=== PATIENT | female | born 1965 | race Caucasian/White ===

== ENCOUNTER 2018-04-17 14:34 | Inpatient (IN) | payer OTHER ==
[~2018-04-17] VITALS: Ht 154.9 cm; Wt 63.5 kg
[2018-04-17 15:30] VITALS: BP 113/70
[2018-04-17] MEDS ORDERED: DOCUSATE SODIUM 283 MG/5 ML MINI-ENEMA PR PRN (15:45)
[2018-04-17] MEDS ORDERED: IBUPROFEN 600 MG TABLET PO PRN (16:45)
[2018-04-17] MEDS ORDERED: *NON-FORMULARY MED [ENTER DRUG, DOSE, FREQ IN COMMENTS] CLINICAL ONE (17:15)
[2018-04-17] MEDS ORDERED: PNEUMOCOCCAL VACCINE POLYVALENT 0.5 ML VIAL [PPSV23] IM ONE (18:30)
[2018-04-17 20:00] VITALS: BP 121/84
[2018-04-17] MEDS: OxyCODONE HCL 5 MG IR TABLET PO PRN (20:03)
[2018-04-17] MEDS: DOCUSATE SODIUM 100 MG CAPSULE PO SCH (20:17)
[2018-04-17] MEDS: SENNA 187 MG TABLET PO SCH (20:17)
[2018-04-18 01:08] VITALS: BP 105/59
[2018-04-18] MEDS: OxyCODONE HCL 5 MG IR TABLET PO PRN ×4 (01:08→20:52)
[2018-04-18 05:34] LABS: BASOPHILS % (AUTO) 0.5 % (0.0-2.0); EOSINOPHILS % (AUTO) 6.2 % (1.0-6.0); HEMATOCRIT 32.9 % (36-46); HEMOGLOBIN 10.7 g/dL (12.0-16.0); LYMPHOCYTES # (AUTO) 1.2 K/uL (1.0-4.8); LYMPHOCYTES % (AUTO) 25.7 % (22.0-44.0); MEAN CORPUSCULAR HEMOGLOBIN 25.5 pg (26.0-34.0); MEAN CORPUSCULAR HGB CONC 32.5 G/dL (31.0-37.0); MEAN CORPUSCULAR VOLUME 79 fL (80-100); MONOCYTES # (AUTO) 0.3 K/uL (0.1-1.0); MONOCYTES % (AUTO) 6.5 % (2.0-9.0); NEUTROPHILS # (AUTO) 2.9 K/uL (1.8-7.7); NEUTROPHILS % (AUTO) 61.1 % (40.0-70.0); PLATELET COUNT (AUTO) 201 K/uL (150-450); RED BLOOD CELL COUNT(AUTO) 4.19 MIL/uL (4.00-5.20); RED CELL DISTRIBUTION WIDTH 17.8 % (11.5-14.5)
[2018-04-18 05:56] LABS: ALANINE AMINOTRANSFERASE 128 U/L (12-78); ALBUMIN 2.5 g/dL (3.4-5.0); ALKALINE PHOSPHATASE 69 U/L (46-116); ANION GAP 6 mmol/L (8-16); ASPARTATE AMINOTRANSFERASE 85 U/L (15-37); BILIRUBIN,TOTAL 0.3 mg/dL (0.1-1.0); CALCIUM, TOTAL 8.5 mg/dL (8.8-10.5); CARBON DIOXIDE 28 mmol/L (22-29); CHLORIDE 104 mmol/L (98-107); CREATININE 0.75 mg/dL (0.60-1.30); GLOMERULAR FILTR. RATE CALC > 60 mL/min (>60); GLUCOSE,RANDOM 103 mg/dL (70-110); POTASSIUM 3.6 mmol/L (3.5-5.1); SODIUM SERUM 138 mmol/L (136-145); TOTAL PROTEIN, SERUM 5.5 g/dL (6.4-8.2); UREA NITROGEN, BLOOD 12 mg/dL (7-18)
[2018-04-18] MEDS ORDERED: OMEPRAZOLE 20 MG CAPSULE PO SCH (07:00)
[2018-04-18 07:47] VITALS: BP 120/76
[2018-04-18] MEDS: AmLODIPine BESYLATE 2.5 MG TABLET PO SCH (08:47)
[2018-04-18] MEDS: HYDROCHLOROTHIAZIDE 25 MG TABLET PO SCH (08:47)
[2018-04-18] MEDS: ASPIRIN 81 MG CHEWABLE TABLET PO SCH (08:47)
[2018-04-18] MEDS: LOSARTAN POTASSIUM 50 MG TABLET PO SCH (08:47)
[2018-04-18] MEDS: DOCUSATE SODIUM 100 MG CAPSULE PO SCH ×2 (08:48→20:51)
[2018-04-18] MEDS: ETHINYL ESTRADIOL PO SCH (09:00)
[2018-04-18] MEDS: NORGESTREL PO SCH (09:00)
[2018-04-18] MEDS: ENOXAPARIN SODIUM 30 MG/0.3 ML PF SYRINGE SQ SCH ×2 (12:47→20:51)
[2018-04-18] MEDS: ONDANSETRON HCL 4 MG TABLET PO PRN (15:22)
[2018-04-18 16:05] VITALS: BP 131/78
[2018-04-18] MEDS: OMEPRAZOLE 20 MG CAPSULE PO SCH (16:21)
[2018-04-18] MEDS: SUMAtriptan SUCCINATE 25 MG TABLET PO PRN (19:15)
[2018-04-18] MEDS: SENNA 187 MG TABLET PO SCH (20:51)
[2018-04-19] VITALS: BP 123/68
[2018-04-19] MEDS: OxyCODONE HCL 5 MG IR TABLET PO PRN ×4 (01:06→22:34)
[2018-04-19] MEDS: OMEPRAZOLE 20 MG CAPSULE PO SCH ×2 (06:07→17:13)
[2018-04-19 08:06] LABS: ALANINE AMINOTRANSFERASE 155 U/L (12-78); ALBUMIN 2.8 g/dL (3.4-5.0); ALKALINE PHOSPHATASE 76 U/L (46-116); ANION GAP 7 mmol/L (8-16); ASPARTATE AMINOTRANSFERASE 97 U/L (15-37); BILIRUBIN,TOTAL 0.4 mg/dL (0.1-1.0); CARBON DIOXIDE 25 mmol/L (22-29); CHLORIDE 100 mmol/L (98-107); CREATININE 0.66 mg/dL (0.60-1.30); GLOMERULAR FILTR. RATE CALC > 60 mL/min (>60); GLUCOSE,RANDOM 98 mg/dL (70-110); POTASSIUM 4.9 mmol/L (3.5-5.1); SODIUM SERUM 132 mmol/L (136-145); TOTAL PROTEIN, SERUM 6.3 g/dL (6.4-8.2); UREA NITROGEN, BLOOD 13 mg/dL (7-18)
[2018-04-19] MEDS: HYDROCHLOROTHIAZIDE 25 MG TABLET PO SCH (08:09)
[2018-04-19] MEDS: ENOXAPARIN SODIUM 30 MG/0.3 ML PF SYRINGE SQ SCH ×2 (08:10→20:35)
[2018-04-19] MEDS: AmLODIPine BESYLATE 2.5 MG TABLET PO SCH (08:10)
[2018-04-19] MEDS: LOSARTAN POTASSIUM 50 MG TABLET PO SCH (08:10)
[2018-04-19] MEDS: ASPIRIN 81 MG CHEWABLE TABLET PO SCH (08:10)
[2018-04-19 09:17] VITALS: BP 116/71
[2018-04-19] MEDS: ETHINYL ESTRADIOL PO SCH ×2 (09:47→09:50)
[2018-04-19] MEDS: NORGESTREL PO SCH ×2 (09:47→09:50)
[2018-04-19 16:09] VITALS: BP 116/61
[2018-04-19] MEDS: SENNA 187 MG TABLET PO SCH (20:35)
[2018-04-19] MEDS: DOCUSATE SODIUM 100 MG CAPSULE PO SCH (20:35)
[2018-04-19] MEDS: BENZOCAINE/MENTHOL LOZENGE PO PRN (21:28)
[2018-04-19 23:34] VITALS: BP 117/76
[2018-04-20] MEDS: OMEPRAZOLE 20 MG CAPSULE PO SCH ×2 (06:19→16:07)
[2018-04-20 07:15] VITALS: BP 138/87
[2018-04-20 07:45] LABS: ALANINE AMINOTRANSFERASE 124 U/L (12-78); ALKALINE PHOSPHATASE 76 U/L (46-116); ANION GAP 5 mmol/L (8-16); ASPARTATE AMINOTRANSFERASE 42 U/L (15-37); BILIRUBIN,TOTAL 0.2 mg/dL (0.1-1.0); CALCIUM, TOTAL 9.1 mg/dL (8.8-10.5); CARBON DIOXIDE 31 mmol/L (22-29); CHLORIDE 99 mmol/L (98-107); CREATININE 0.73 mg/dL (0.60-1.30); GLOMERULAR FILTR. RATE CALC > 60 mL/min (>60); GLUCOSE,RANDOM 101 mg/dL (70-110); POTASSIUM 3.4 mmol/L (3.5-5.1); SODIUM SERUM 135 mmol/L (136-145); TOTAL PROTEIN, SERUM 6.4 g/dL (6.4-8.2); UREA NITROGEN, BLOOD 18 mg/dL (7-18)
[2018-04-20] MEDS: LOSARTAN POTASSIUM 50 MG TABLET PO SCH (08:38)
[2018-04-20] MEDS: NORGESTREL PO SCH (08:39)
[2018-04-20] MEDS: ETHINYL ESTRADIOL PO SCH (08:39)
[2018-04-20] MEDS: ASPIRIN 81 MG CHEWABLE TABLET PO SCH (08:39)
[2018-04-20] MEDS: HYDROCHLOROTHIAZIDE 25 MG TABLET PO SCH (08:39)
[2018-04-20] MEDS: OxyCODONE HCL 5 MG IR TABLET PO PRN (08:39)
[2018-04-20] MEDS: AmLODIPine BESYLATE 2.5 MG TABLET PO SCH (08:39)
[2018-04-20] MEDS: ENOXAPARIN SODIUM 30 MG/0.3 ML PF SYRINGE SQ SCH ×2 (08:39→20:50)
[2018-04-20] MEDS: POTASSIUM CHLORIDE 10% 40 MEQ/30 ML LIQUID UDCUP PO SCH (13:10)
[2018-04-20] MEDS: ACETAMINOPHEN 325 MG TABLET PO PRN ×2 (13:13→16:07)
[2018-04-20 15:15] VITALS: BP 121/69
[2018-04-20] MEDS: SUMAtriptan SUCCINATE 25 MG TABLET PO PRN (19:22)
[2018-04-20] MEDS: DOCUSATE SODIUM 100 MG CAPSULE PO SCH (20:50)
[2018-04-20] MEDS: SENNA 187 MG TABLET PO SCH (20:50)
[2018-04-20 23:51] VITALS: BP 123/76
[2018-04-21] VITALS: BP 123/76
[2018-04-21] MEDS: OMEPRAZOLE 20 MG CAPSULE PO SCH ×2 (05:23→17:25)
[2018-04-21] MEDS: ACETAMINOPHEN 325 MG TABLET PO PRN (05:24)
[2018-04-21 06:33] LABS: CALCIUM, TOTAL 9.1 mg/dL (8.8-10.5); CREATININE 0.97 mg/dL (0.60-1.30); POTASSIUM 3.4 mmol/L (3.5-5.1)
[2018-04-21] MEDS: NORGESTREL PO SCH (08:10)
[2018-04-21] MEDS: ASPIRIN 81 MG CHEWABLE TABLET PO SCH (08:10)
[2018-04-21] MEDS: ETHINYL ESTRADIOL PO SCH (08:10)
[2018-04-21] MEDS: HYDROCHLOROTHIAZIDE 25 MG TABLET PO SCH (08:11)
[2018-04-21] MEDS: LOSARTAN POTASSIUM 50 MG TABLET PO SCH (08:11)
[2018-04-21] MEDS: AmLODIPine BESYLATE 2.5 MG TABLET PO SCH (08:11)
[2018-04-21] MEDS: ENOXAPARIN SODIUM 30 MG/0.3 ML PF SYRINGE SQ SCH ×2 (08:12→21:51)
[2018-04-21] MEDS: POTASSIUM CHLORIDE 10% 40 MEQ/30 ML LIQUID UDCUP PO SCH (08:12)
[2018-04-21 08:47] VITALS: BP 123/78
[2018-04-21] MEDS: OxyCODONE HCL 5 MG IR TABLET PO PRN (14:08)
[2018-04-21] MEDS: MENTHOL/ZINC OXIDE 113 GM OINTMENT TP SCH ×2 (16:00→21:00)
[2018-04-21 16:11] VITALS: BP 120/64
[2018-04-21] MEDS: DOCUSATE SODIUM 100 MG CAPSULE PO SCH (21:51)
[2018-04-21] MEDS: SENNA 187 MG TABLET PO SCH (21:51)
[2018-04-22] MEDS ORDERED: MULT-1203 PO (03:12)
[2018-04-22] MEDS ORDERED: AMLO2.5T4 PO (03:12)
[2018-04-22] MEDS ORDERED: NORG1TAB97 PO (03:12)
[2018-04-22] MEDS ORDERED: LOSA1TAB37 PO (03:12)
[2018-04-22] MEDS ORDERED: OMEP20 PO (03:12)
[2018-04-22] MEDS ORDERED: ASPI-1182 PO (03:12)
[2018-04-22] MEDS ORDERED: DSS100 PO (03:12)
[2018-04-22 06:00] VITALS: BP 129/80
[2018-04-22] MEDS: OMEPRAZOLE 20 MG CAPSULE PO SCH ×2 (06:10→16:30)
[2018-04-22 06:42] LABS: ALANINE AMINOTRANSFERASE 73 U/L (12-78); ALBUMIN 2.9 g/dL (3.4-5.0); ALKALINE PHOSPHATASE 63 U/L (46-116); ANION GAP 7 mmol/L (8-16); ASPARTATE AMINOTRANSFERASE 19 U/L (15-37); BILIRUBIN,TOTAL 0.3 mg/dL (0.1-1.0); CALCIUM, TOTAL 8.7 mg/dL (8.8-10.5); CARBON DIOXIDE 29 mmol/L (22-29); CHLORIDE 100 mmol/L (98-107); CHOL/HDL RATIO 2.8 (3.9-5.7); CHOLESTEROL 148 mg/dL (131-200); CREATININE 0.72 mg/dL (0.60-1.30); GLOMERULAR FILTR. RATE CALC > 60 mL/min (>60); GLUCOSE,RANDOM 98 mg/dL (70-110); HDL CHOLESTEROL 53 mg/dL (40-60); LDL CHOL (CALC.) 59 mg/dL (0-130); POTASSIUM 3.3 mmol/L (3.5-5.1); SODIUM SERUM 136 mmol/L (136-145); TOTAL PROTEIN, SERUM 6.1 g/dL (6.4-8.2); TRIGLYCERIDES 178 mg/dL (15-150); UREA NITROGEN, BLOOD 15 mg/dL (7-18)
[2018-04-22 06:55] LABS: HEMOGLOBIN A1C 5.6 % (4.5-6.2)
[2018-04-22 08:15] VITALS: BP 117/83
[2018-04-22] MEDS ORDERED: GADOBUTROL 1 MMOL/ML 10 ML VIAL IVP ONE (08:57)
[2018-04-22 09:31] VITALS: BP 136/88
[2018-04-22] MEDS: LOSARTAN POTASSIUM 50 MG TABLET PO SCH (09:36)
[2018-04-22] MEDS: ONDANSETRON HCL 4 MG TABLET PO PRN (09:36)
[2018-04-22] MEDS: HYDROCHLOROTHIAZIDE 25 MG TABLET PO SCH (09:36)
[2018-04-22] MEDS: TraMADol HCL 50 MG TABLET PO PRN (09:36)
[2018-04-22] MEDS: AmLODIPine BESYLATE 2.5 MG TABLET PO SCH (09:36)
[2018-04-22] MEDS: ASPIRIN 81 MG CHEWABLE TABLET PO SCH (09:37)
[2018-04-22] MEDS: MENTHOL/ZINC OXIDE 113 GM OINTMENT TP SCH ×3 (09:37→21:08)
[2018-04-22] MEDS: POTASSIUM CHLORIDE 10% 40 MEQ/30 ML LIQUID UDCUP PO SCH (09:37)
[2018-04-22] MEDS: NORGESTREL PO SCH (09:37)
[2018-04-22] MEDS: ENOXAPARIN SODIUM 30 MG/0.3 ML PF SYRINGE SQ SCH ×2 (09:37→21:08)
[2018-04-22] MEDS: ETHINYL ESTRADIOL PO SCH (09:37)
[2018-04-22] MEDS: POTASSIUM CHLORIDE 8 MEQ ER TABLET PO ONE ×2 (10:03→12:37)
[2018-04-22 16:11] VITALS: BP 130/72
[2018-04-22] MEDS: SENNA 187 MG TABLET PO SCH (21:08)
[2018-04-22] MEDS: DOCUSATE SODIUM 100 MG CAPSULE PO SCH (21:09)
[2018-04-22 23:30] VITALS: BP 107/59
[2018-04-22] MEDS: SUMAtriptan SUCCINATE 25 MG TABLET PO PRN (23:30)
[2018-04-23] MEDS: OMEPRAZOLE 20 MG CAPSULE PO SCH ×2 (06:15→16:58)
[2018-04-23] MEDS: LOSARTAN POTASSIUM 50 MG TABLET PO SCH (07:51)
[2018-04-23] MEDS: ASPIRIN 81 MG CHEWABLE TABLET PO SCH (07:51)
[2018-04-23] MEDS: POTASSIUM CHLORIDE 10% 40 MEQ/30 ML LIQUID UDCUP PO SCH (07:51)
[2018-04-23] MEDS: HYDROCHLOROTHIAZIDE 25 MG TABLET PO SCH (07:51)
[2018-04-23] MEDS: MENTHOL/ZINC OXIDE 113 GM OINTMENT TP SCH ×3 (07:52→20:09)
[2018-04-23] MEDS: AmLODIPine BESYLATE 2.5 MG TABLET PO SCH (07:52)
[2018-04-23] MEDS: ETHINYL ESTRADIOL PO SCH (07:53)
[2018-04-23] MEDS: NORGESTREL PO SCH (07:53)
[2018-04-23] MEDS: ENOXAPARIN SODIUM 30 MG/0.3 ML PF SYRINGE SQ SCH ×2 (07:53→20:09)
[2018-04-23 07:55] VITALS: BP 124/76
[2018-04-23] MEDS: TraMADol HCL 50 MG TABLET PO PRN (07:55)
[2018-04-23] MEDS ORDERED: MAGNESIUM HYDROXIDE SUSPENSION 30 ML UDCUP PO PRN (14:15)
[2018-04-23 16:01] VITALS: BP 121/73
[2018-04-23] MEDS: OxyCODONE HCL 5 MG IR TABLET PO PRN ×2 (17:06→22:33)
[2018-04-23] MEDS: DOCUSATE SODIUM 100 MG CAPSULE PO SCH (20:10)
[2018-04-23] MEDS: SENNA 187 MG TABLET PO SCH (20:10)
[2018-04-23 22:33] VITALS: BP 104/68
[2018-04-24] MEDS: ACETAMINOPHEN 325 MG TABLET PO PRN (06:15)
[2018-04-24] MEDS: OMEPRAZOLE 20 MG CAPSULE PO SCH ×2 (06:16→16:40)
[2018-04-24 08:00] VITALS: BP 117/74
[2018-04-24] MEDS: ASPIRIN 81 MG CHEWABLE TABLET PO SCH (08:34)
[2018-04-24] MEDS: ENOXAPARIN SODIUM 30 MG/0.3 ML PF SYRINGE SQ SCH ×2 (08:34→20:46)
[2018-04-24] MEDS: LOSARTAN POTASSIUM 50 MG TABLET PO SCH (08:34)
[2018-04-24] MEDS: HYDROCHLOROTHIAZIDE 25 MG TABLET PO SCH (08:35)
[2018-04-24] MEDS: ETHINYL ESTRADIOL PO SCH (08:35)
[2018-04-24] MEDS: NORGESTREL PO SCH (08:35)
[2018-04-24] MEDS: MENTHOL/ZINC OXIDE 113 GM OINTMENT TP SCH ×4 (08:35→20:47)
[2018-04-24] MEDS: AmLODIPine BESYLATE 2.5 MG TABLET PO SCH (08:36)
[2018-04-24] MEDS: POTASSIUM CHLORIDE 10% 40 MEQ/30 ML LIQUID UDCUP PO SCH (08:36)
[2018-04-24] MEDS: BENZOCAINE/MENTHOL LOZENGE PO PRN (09:07)
[2018-04-24] MEDS: OxyCODONE HCL 5 MG IR TABLET PO PRN (11:25)
[2018-04-24] MEDS: LIDOCAINE 5% TRANSDERMAL PATCH TD SCH (14:53)
[2018-04-24 16:00] VITALS: BP 113/80
[2018-04-24] MEDS: DOCUSATE SODIUM 250 MG CAPSULE PO SCH (20:46)
[2018-04-24] MEDS: SENNA 187 MG TABLET PO SCH (20:46)
[2018-04-24] MEDS: -LIDODERM PATCH NOTE- MISC SCH (20:47)
[2018-04-24] MEDS: TraMADol HCL 50 MG TABLET PO PRN (20:53)
[2018-04-24 23:25] VITALS: BP 100/65
[2018-04-24] MEDS: SUMAtriptan SUCCINATE 25 MG TABLET PO PRN (23:25)
[2018-04-25] MEDS: TraMADol HCL 50 MG TABLET PO PRN ×2 (02:04→20:27)
[2018-04-25] MEDS: OMEPRAZOLE 20 MG CAPSULE PO SCH ×2 (06:27→16:32)
[2018-04-25 08:22] VITALS: BP 131/88
[2018-04-25] MEDS: HYDROCHLOROTHIAZIDE 25 MG TABLET PO SCH (08:43)
[2018-04-25] MEDS: DOCUSATE SODIUM 250 MG CAPSULE PO SCH ×2 (08:43→20:27)
[2018-04-25] MEDS: LOSARTAN POTASSIUM 50 MG TABLET PO SCH (08:43)
[2018-04-25] MEDS: AmLODIPine BESYLATE 2.5 MG TABLET PO SCH (08:43)
[2018-04-25] MEDS: NORGESTREL PO SCH (08:44)
[2018-04-25] MEDS: ASPIRIN 81 MG CHEWABLE TABLET PO SCH (08:44)
[2018-04-25] MEDS: ETHINYL ESTRADIOL PO SCH (08:44)
[2018-04-25] MEDS: LIDOCAINE 5% TRANSDERMAL PATCH TD SCH (08:45)
[2018-04-25] MEDS: ENOXAPARIN SODIUM 30 MG/0.3 ML PF SYRINGE SQ SCH ×2 (08:45→20:27)
[2018-04-25] MEDS: POTASSIUM CHLORIDE 10% 40 MEQ/30 ML LIQUID UDCUP PO SCH (08:46)
[2018-04-25] MEDS: MENTHOL/ZINC OXIDE 113 GM OINTMENT TP SCH (09:00)
[2018-04-25] MEDS: ACETAMINOPHEN 325 MG TABLET PO PRN (12:55)
[2018-04-25 16:29] VITALS: BP 121/57
[2018-04-25] MEDS: CAMPHOR/MENTHOL 222 ML LOTION TP SCH ×2 (16:32→20:28)
[2018-04-25] MEDS: HYDROCORTISONE 1% 30 GM CREAM TP SCH ×2 (16:32→20:28)
[2018-04-25] MEDS: -LIDODERM PATCH NOTE- MISC SCH (20:25)
[2018-04-25] MEDS: SENNA 187 MG TABLET PO SCH (20:27)
[2018-04-26 05:50] VITALS: BP 109/63
[2018-04-26] MEDS: OMEPRAZOLE 20 MG CAPSULE PO SCH ×2 (06:11→16:29)
[2018-04-26 08:10] VITALS: BP 132/71
[2018-04-26] MEDS: CAMPHOR/MENTHOL 222 ML LOTION TP SCH ×3 (08:50→21:46)
[2018-04-26] MEDS: NORGESTREL PO SCH (08:50)
[2018-04-26] MEDS: ETHINYL ESTRADIOL PO SCH (08:50)
[2018-04-26] MEDS: POTASSIUM CHLORIDE 10% 40 MEQ/30 ML LIQUID UDCUP PO SCH (08:50)
[2018-04-26] MEDS: HYDROCORTISONE 1% 30 GM CREAM TP SCH ×3 (08:50→21:46)
[2018-04-26] MEDS: LOSARTAN POTASSIUM 50 MG TABLET PO SCH (08:51)
[2018-04-26] MEDS: ENOXAPARIN SODIUM 30 MG/0.3 ML PF SYRINGE SQ SCH ×2 (08:51→20:08)
[2018-04-26] MEDS: DOCUSATE SODIUM 250 MG CAPSULE PO SCH ×2 (08:52→20:08)
[2018-04-26] MEDS: ASPIRIN 81 MG CHEWABLE TABLET PO SCH (08:52)
[2018-04-26] MEDS: HYDROCHLOROTHIAZIDE 25 MG TABLET PO SCH (08:54)
[2018-04-26] MEDS: AmLODIPine BESYLATE 2.5 MG TABLET PO SCH (08:54)
[2018-04-26] MEDS: LIDOCAINE 5% TRANSDERMAL PATCH TD SCH (08:55)
[2018-04-26] MEDS: TraMADol HCL 50 MG TABLET PO PRN (08:56)
[2018-04-26 16:15] VITALS: BP 120/79
[2018-04-26] MEDS ORDERED: DiphenhydrAMINE HCL 25 MG CAPSULE PO PRN (18:00)
[2018-04-26] MEDS: SENNA 187 MG TABLET PO SCH (20:08)
[2018-04-26] MEDS: -LIDODERM PATCH NOTE- MISC SCH (20:08)
[2018-04-26] MEDS: DiphenhydrAMINE HCL 25 MG CAPSULE PO PRN (21:58)
[2018-04-27] VITALS: BP 112/66
[2018-04-27] MEDS: OMEPRAZOLE 20 MG CAPSULE PO SCH ×2 (06:34→16:55)
[2018-04-27 07:43] VITALS: BP 136/86
[2018-04-27] MEDS: ETHINYL ESTRADIOL PO SCH (08:56)
[2018-04-27] MEDS: NORGESTREL PO SCH (08:56)
[2018-04-27] MEDS: AmLODIPine BESYLATE 2.5 MG TABLET PO SCH (08:57)
[2018-04-27] MEDS: HYDROCHLOROTHIAZIDE 25 MG TABLET PO SCH (08:57)
[2018-04-27] MEDS: ASPIRIN 81 MG CHEWABLE TABLET PO SCH (08:57)
[2018-04-27] MEDS: CAMPHOR/MENTHOL 222 ML LOTION TP SCH ×3 (08:57→20:37)
[2018-04-27] MEDS: HYDROCORTISONE 1% 30 GM CREAM TP SCH ×3 (08:57→20:37)
[2018-04-27] MEDS: LOSARTAN POTASSIUM 50 MG TABLET PO SCH (08:58)
[2018-04-27] MEDS: ENOXAPARIN SODIUM 30 MG/0.3 ML PF SYRINGE SQ SCH ×2 (08:58→20:36)
[2018-04-27] MEDS: POTASSIUM CHLORIDE 10% 40 MEQ/30 ML LIQUID UDCUP PO SCH (08:58)
[2018-04-27] MEDS: DOCUSATE SODIUM 250 MG CAPSULE PO SCH ×2 (08:58→20:36)
[2018-04-27] MEDS: LIDOCAINE 5% TRANSDERMAL PATCH TD SCH (08:59)
[2018-04-27] MEDS: ACETAMINOPHEN 325 MG TABLET PO PRN (10:17)
[2018-04-27] MEDS: TraMADol HCL 50 MG TABLET PO PRN (11:00)
[2018-04-27 16:20] VITALS: BP 117/90
[2018-04-27] MEDS: SENNA 187 MG TABLET PO SCH (20:36)
[2018-04-27] MEDS: DiphenhydrAMINE HCL 25 MG CAPSULE PO PRN (20:36)
[2018-04-27] MEDS: -LIDODERM PATCH NOTE- MISC SCH (20:37)
[2018-04-28] VITALS: BP 98/69
[2018-04-28 06:00] VITALS: BP 115/59
[2018-04-28] MEDS: OMEPRAZOLE 20 MG CAPSULE PO SCH ×2 (06:04→16:26)
[2018-04-28 07:24] VITALS: BP 104/62
[2018-04-28] MEDS: DOCUSATE SODIUM 250 MG CAPSULE PO SCH ×2 (08:29→20:14)
[2018-04-28] MEDS: LOSARTAN POTASSIUM 50 MG TABLET PO SCH (08:29)
[2018-04-28] MEDS: ASPIRIN 81 MG CHEWABLE TABLET PO SCH (08:30)
[2018-04-28] MEDS: HYDROCHLOROTHIAZIDE 25 MG TABLET PO SCH (08:30)
[2018-04-28] MEDS: ETHINYL ESTRADIOL PO SCH (08:30)
[2018-04-28] MEDS: NORGESTREL PO SCH (08:30)
[2018-04-28] MEDS: AmLODIPine BESYLATE 2.5 MG TABLET PO SCH (08:30)
[2018-04-28] MEDS: POTASSIUM CHLORIDE 10% 40 MEQ/30 ML LIQUID UDCUP PO SCH (08:30)
[2018-04-28] MEDS: ENOXAPARIN SODIUM 30 MG/0.3 ML PF SYRINGE SQ SCH ×2 (08:31→20:14)
[2018-04-28] MEDS: LIDOCAINE 5% TRANSDERMAL PATCH TD SCH ×2 (08:31→10:10)
[2018-04-28] MEDS: HYDROCORTISONE 1% 30 GM CREAM TP SCH ×3 (10:09→20:15)
[2018-04-28] MEDS: CAMPHOR/MENTHOL 222 ML LOTION TP SCH ×3 (10:09→20:16)
[2018-04-28] MEDS: SUMAtriptan SUCCINATE 25 MG TABLET PO PRN ×2 (12:19→20:18)
[2018-04-28 16:39] VITALS: BP 134/99
[2018-04-28] MEDS: ACETAMINOPHEN 325 MG TABLET PO PRN (19:15)
[2018-04-28] MEDS: SENNA 187 MG TABLET PO SCH (20:14)
[2018-04-28] MEDS: -LIDODERM PATCH NOTE- MISC SCH (20:14)
[2018-04-29] VITALS: BP 109/70
[2018-04-29] MEDS: ACETAMINOPHEN 325 MG TABLET PO PRN ×2 (02:00→08:36)
[2018-04-29] MEDS: OMEPRAZOLE 20 MG CAPSULE PO SCH ×2 (06:44→16:30)
[2018-04-29 07:23] VITALS: BP 129/88
[2018-04-29] MEDS: AmLODIPine BESYLATE 2.5 MG TABLET PO SCH (08:34)
[2018-04-29] MEDS: LOSARTAN POTASSIUM 50 MG TABLET PO SCH (08:34)
[2018-04-29] MEDS: ASPIRIN 81 MG CHEWABLE TABLET PO SCH (08:34)
[2018-04-29] MEDS: DOCUSATE SODIUM 250 MG CAPSULE PO SCH ×2 (08:34→20:39)
[2018-04-29] MEDS: HYDROCHLOROTHIAZIDE 25 MG TABLET PO SCH (08:34)
[2018-04-29] MEDS: ENOXAPARIN SODIUM 30 MG/0.3 ML PF SYRINGE SQ SCH ×2 (08:35→20:39)
[2018-04-29] MEDS: POTASSIUM CHLORIDE 10% 40 MEQ/30 ML LIQUID UDCUP PO SCH (08:35)
[2018-04-29] MEDS: LIDOCAINE 5% TRANSDERMAL PATCH TD SCH (08:37)
[2018-04-29] MEDS: ETHINYL ESTRADIOL PO SCH (08:37)
[2018-04-29] MEDS: CAMPHOR/MENTHOL 222 ML LOTION TP SCH ×3 (08:37→20:40)
[2018-04-29] MEDS: NORGESTREL PO SCH (08:37)
[2018-04-29] MEDS: HYDROCORTISONE 1% 30 GM CREAM TP SCH ×3 (08:37→20:40)
[2018-04-29] MEDS: SUMAtriptan SUCCINATE 25 MG TABLET PO PRN ×2 (10:23→14:43)
[2018-04-29 15:47] VITALS: BP 120/85
[2018-04-29] MEDS: TraMADol HCL 50 MG TABLET PO PRN (16:30)
[2018-04-29] MEDS: -LIDODERM PATCH NOTE- MISC SCH (20:38)
[2018-04-29] MEDS: SENNA 187 MG TABLET PO SCH (20:39)
[2018-04-29] MEDS: TOPIRAMATE 25 MG TABLET PO SCH (20:39)
[2018-04-30] VITALS: BP 103/74
[2018-04-30] MEDS: ACETAMINOPHEN 325 MG TABLET PO PRN ×2 (03:08→23:40)
[2018-04-30] MEDS: OMEPRAZOLE 20 MG CAPSULE PO SCH ×2 (06:07→17:19)
[2018-04-30 07:10] VITALS: BP 115/77
[2018-04-30] MEDS: ASPIRIN 81 MG CHEWABLE TABLET PO SCH (08:35)
[2018-04-30] MEDS: DOCUSATE SODIUM 250 MG CAPSULE PO SCH ×2 (08:35→20:25)
[2018-04-30] MEDS: ENOXAPARIN SODIUM 30 MG/0.3 ML PF SYRINGE SQ SCH ×2 (08:35→20:26)
[2018-04-30] MEDS: LOSARTAN POTASSIUM 50 MG TABLET PO SCH (08:36)
[2018-04-30] MEDS: HYDROCORTISONE 1% 30 GM CREAM TP SCH ×3 (08:36→20:26)
[2018-04-30] MEDS: CAMPHOR/MENTHOL 222 ML LOTION TP SCH ×3 (08:36→20:26)
[2018-04-30] MEDS: ETHINYL ESTRADIOL PO SCH (09:13)
[2018-04-30] MEDS: NORGESTREL PO SCH (09:13)
[2018-04-30] MEDS: AmLODIPine BESYLATE 2.5 MG TABLET PO SCH (09:14)
[2018-04-30] MEDS: HYDROCHLOROTHIAZIDE 25 MG TABLET PO SCH (09:15)
[2018-04-30] MEDS: POTASSIUM CHLORIDE 10% 40 MEQ/30 ML LIQUID UDCUP PO SCH (09:17)
[2018-04-30] MEDS: LIDOCAINE 5% TRANSDERMAL PATCH TD SCH (09:19)
[2018-04-30 17:17] VITALS: BP 111/78
[2018-04-30] MEDS: TraMADol HCL 50 MG TABLET PO PRN (17:20)
[2018-04-30] MEDS: SENNA 187 MG TABLET PO SCH (20:25)
[2018-04-30] MEDS: TOPIRAMATE 25 MG TABLET PO SCH (20:25)
[2018-04-30] MEDS: -LIDODERM PATCH NOTE- MISC SCH (20:26)
[2018-04-30 23:40] VITALS: BP 116/72
[2018-05-01] MEDS: OMEPRAZOLE 20 MG CAPSULE PO SCH ×2 (06:37→17:04)
[2018-05-01 07:40] VITALS: BP 125/82
[2018-05-01] MEDS: ENOXAPARIN SODIUM 30 MG/0.3 ML PF SYRINGE SQ SCH ×2 (08:42→20:14)
[2018-05-01] MEDS: ASPIRIN 81 MG CHEWABLE TABLET PO SCH (08:43)
[2018-05-01] MEDS: ETHINYL ESTRADIOL PO SCH (08:43)
[2018-05-01] MEDS: POTASSIUM CHLORIDE 10% 40 MEQ/30 ML LIQUID UDCUP PO SCH (08:43)
[2018-05-01] MEDS: HYDROCHLOROTHIAZIDE 25 MG TABLET PO SCH (08:43)
[2018-05-01] MEDS: LOSARTAN POTASSIUM 50 MG TABLET PO SCH (08:43)
[2018-05-01] MEDS: AmLODIPine BESYLATE 2.5 MG TABLET PO SCH (08:43)
[2018-05-01] MEDS: DOCUSATE SODIUM 250 MG CAPSULE PO SCH ×2 (08:43→20:14)
[2018-05-01] MEDS: NORGESTREL PO SCH (08:43)
[2018-05-01] MEDS: LIDOCAINE 5% TRANSDERMAL PATCH TD SCH (08:44)
[2018-05-01] MEDS: CAMPHOR/MENTHOL 222 ML LOTION TP SCH ×3 (08:44→20:15)
[2018-05-01] MEDS: HYDROCORTISONE 1% 30 GM CREAM TP SCH ×3 (08:44→20:15)
[2018-05-01] MEDS: DiphenhydrAMINE HCL 25 MG CAPSULE PO PRN (15:41)
[2018-05-01 16:02] VITALS: BP 116/76
[2018-05-01] MEDS: TOPIRAMATE 25 MG TABLET PO SCH (20:14)
[2018-05-01] MEDS: SENNA 187 MG TABLET PO SCH (20:14)
[2018-05-01] MEDS: -LIDODERM PATCH NOTE- MISC SCH (20:15)
[2018-05-02] VITALS: BP 103/67
[2018-05-02] MEDS: OMEPRAZOLE 20 MG CAPSULE PO SCH ×2 (06:04→17:09)
[2018-05-02 08:04] VITALS: BP 112/76
[2018-05-02] MEDS: HYDROCHLOROTHIAZIDE 25 MG TABLET PO SCH (08:59)
[2018-05-02] MEDS: ETHINYL ESTRADIOL PO SCH (09:00)
[2018-05-02] MEDS: NORGESTREL PO SCH (09:00)
[2018-05-02] MEDS: DOCUSATE SODIUM 250 MG CAPSULE PO SCH ×2 (09:00→18:57)
[2018-05-02] MEDS: LOSARTAN POTASSIUM 50 MG TABLET PO SCH (09:01)
[2018-05-02] MEDS: LIDOCAINE 5% TRANSDERMAL PATCH TD SCH (09:05)
[2018-05-02] MEDS: POTASSIUM CHLORIDE 10% 40 MEQ/30 ML LIQUID UDCUP PO SCH (09:06)
[2018-05-02] MEDS: ENOXAPARIN SODIUM 30 MG/0.3 ML PF SYRINGE SQ SCH ×2 (09:08→18:57)
[2018-05-02] MEDS: HYDROCORTISONE 1% 30 GM CREAM TP SCH ×3 (09:08→19:08)
[2018-05-02] MEDS: CAMPHOR/MENTHOL 222 ML LOTION TP SCH ×3 (09:09→19:07)
[2018-05-02] MEDS: ASPIRIN 81 MG CHEWABLE TABLET PO SCH (09:18)
[2018-05-02] MEDS: AmLODIPine BESYLATE 2.5 MG TABLET PO SCH (10:56)
[2018-05-02 16:12] VITALS: BP 110/79
[2018-05-02] MEDS: TOPIRAMATE 25 MG TABLET PO SCH (18:58)
[2018-05-02] MEDS: SENNA 187 MG TABLET PO SCH (18:58)
[2018-05-02] MEDS: -LIDODERM PATCH NOTE- MISC SCH (18:58)
[2018-05-03 00:30] VITALS: BP 114/68
[2018-05-03] MEDS: OMEPRAZOLE 20 MG CAPSULE PO SCH ×2 (06:47→15:24)
[2018-05-03 08:58] VITALS: BP 103/67
[2018-05-03] MEDS: LOSARTAN POTASSIUM 50 MG TABLET PO SCH (09:06)
[2018-05-03] MEDS: ENOXAPARIN SODIUM 30 MG/0.3 ML PF SYRINGE SQ SCH ×2 (09:06→20:24)
[2018-05-03] MEDS: DOCUSATE SODIUM 250 MG CAPSULE PO SCH ×2 (09:06→20:24)
[2018-05-03] MEDS: ASPIRIN 81 MG CHEWABLE TABLET PO SCH (09:06)
[2018-05-03] MEDS: HYDROCORTISONE 1% 30 GM CREAM TP SCH ×3 (09:08→20:25)
[2018-05-03] MEDS: POTASSIUM CHLORIDE 10% 40 MEQ/30 ML LIQUID UDCUP PO SCH (09:09)
[2018-05-03] MEDS: AmLODIPine BESYLATE 2.5 MG TABLET PO SCH (09:12)
[2018-05-03] MEDS: HYDROCHLOROTHIAZIDE 25 MG TABLET PO SCH (09:12)
[2018-05-03] MEDS: ETHINYL ESTRADIOL PO SCH (09:14)
[2018-05-03] MEDS: NORGESTREL PO SCH (09:14)
[2018-05-03] MEDS: LIDOCAINE 5% TRANSDERMAL PATCH TD SCH (09:14)
[2018-05-03] MEDS: CAMPHOR/MENTHOL 222 ML LOTION TP SCH ×3 (09:28→20:24)
[2018-05-03 16:39] VITALS: BP 117/74
[2018-05-03] MEDS: SENNA 187 MG TABLET PO SCH (20:24)
[2018-05-03] MEDS: TOPIRAMATE 25 MG TABLET PO SCH (20:24)
[2018-05-03] MEDS: -LIDODERM PATCH NOTE- MISC SCH (20:25)
[2018-05-04] VITALS: BP 104/69
[2018-05-04] MEDS: OMEPRAZOLE 20 MG CAPSULE PO SCH ×2 (06:53→17:46)
[2018-05-04 07:30] VITALS: BP 117/75
[2018-05-04] MEDS: DOCUSATE SODIUM 250 MG CAPSULE PO SCH ×2 (09:26→20:25)
[2018-05-04] MEDS: NORGESTREL PO SCH (09:26)
[2018-05-04] MEDS: ETHINYL ESTRADIOL PO SCH (09:26)
[2018-05-04] MEDS: ASPIRIN 81 MG CHEWABLE TABLET PO SCH (09:26)
[2018-05-04] MEDS: HYDROCHLOROTHIAZIDE 25 MG TABLET PO SCH (09:26)
[2018-05-04] MEDS: AmLODIPine BESYLATE 2.5 MG TABLET PO SCH (09:26)
[2018-05-04] MEDS: LOSARTAN POTASSIUM 50 MG TABLET PO SCH (09:26)
[2018-05-04] MEDS: POTASSIUM CHLORIDE 10% 40 MEQ/30 ML LIQUID UDCUP PO SCH (09:27)
[2018-05-04] MEDS: LIDOCAINE 5% TRANSDERMAL PATCH TD SCH (09:27)
[2018-05-04] MEDS: CAMPHOR/MENTHOL 222 ML LOTION TP SCH ×3 (09:28→20:25)
[2018-05-04] MEDS: HYDROCORTISONE 1% 30 GM CREAM TP SCH ×3 (09:28→20:25)
[2018-05-04 17:40] VITALS: BP 123/80
[2018-05-04] MEDS: TOPIRAMATE 25 MG TABLET PO SCH (20:25)
[2018-05-04] MEDS: SENNA 187 MG TABLET PO SCH (20:25)
[2018-05-04] MEDS: -LIDODERM PATCH NOTE- MISC SCH (20:25)
[2018-05-05] MEDS: OMEPRAZOLE 20 MG CAPSULE PO SCH ×2 (06:21→16:13)
[2018-05-05 06:26] VITALS: BP 102/68
[2018-05-05 07:20] VITALS: BP 137/82
[2018-05-05] MEDS: ASPIRIN 81 MG CHEWABLE TABLET PO SCH (08:19)
[2018-05-05] MEDS: NORGESTREL PO SCH (08:19)
[2018-05-05] MEDS: POTASSIUM CHLORIDE 10% 40 MEQ/30 ML LIQUID UDCUP PO SCH (08:19)
[2018-05-05] MEDS: HYDROCORTISONE 1% 30 GM CREAM TP SCH ×3 (08:19→20:38)
[2018-05-05] MEDS: ETHINYL ESTRADIOL PO SCH (08:19)
[2018-05-05] MEDS: LIDOCAINE 5% TRANSDERMAL PATCH TD SCH (08:19)
[2018-05-05] MEDS: DOCUSATE SODIUM 250 MG CAPSULE PO SCH ×2 (08:20→20:38)
[2018-05-05] MEDS: LOSARTAN POTASSIUM 50 MG TABLET PO SCH (08:20)
[2018-05-05] MEDS: AmLODIPine BESYLATE 2.5 MG TABLET PO SCH (08:20)
[2018-05-05] MEDS: CAMPHOR/MENTHOL 222 ML LOTION TP SCH ×3 (08:20→20:38)
[2018-05-05] MEDS: HYDROCHLOROTHIAZIDE 25 MG TABLET PO SCH (08:20)
[2018-05-05] MEDS: TraMADol HCL 50 MG TABLET PO PRN (16:13)
[2018-05-05 16:22] VITALS: BP 120/70
[2018-05-05] MEDS: SENNA 187 MG TABLET PO SCH (20:38)
[2018-05-05] MEDS: TOPIRAMATE 25 MG TABLET PO SCH (20:38)
[2018-05-05] MEDS: -LIDODERM PATCH NOTE- MISC SCH (20:39)
[2018-05-06 00:57] VITALS: BP 134/76
[2018-05-06] MEDS: OMEPRAZOLE 20 MG CAPSULE PO SCH ×2 (06:09→16:42)
[2018-05-06] MEDS: POTASSIUM CHLORIDE 10% 40 MEQ/30 ML LIQUID UDCUP PO SCH (09:25)
[2018-05-06] MEDS: ASPIRIN 81 MG CHEWABLE TABLET PO SCH (09:25)
[2018-05-06] MEDS: DOCUSATE SODIUM 250 MG CAPSULE PO SCH ×2 (09:25→21:32)
[2018-05-06] MEDS: LOSARTAN POTASSIUM 50 MG TABLET PO SCH (09:25)
[2018-05-06] MEDS: NORGESTREL PO SCH (09:26)
[2018-05-06] MEDS: ETHINYL ESTRADIOL PO SCH (09:26)
[2018-05-06] MEDS: LIDOCAINE 5% TRANSDERMAL PATCH TD SCH (09:26)
[2018-05-06] MEDS: AmLODIPine BESYLATE 2.5 MG TABLET PO SCH (09:27)
[2018-05-06] MEDS: HYDROCHLOROTHIAZIDE 25 MG TABLET PO SCH (09:27)
[2018-05-06] MEDS: CAMPHOR/MENTHOL 222 ML LOTION TP SCH ×3 (09:28→21:39)
[2018-05-06] MEDS: HYDROCORTISONE 1% 30 GM CREAM TP SCH ×3 (09:28→21:39)
[2018-05-06 09:38] VITALS: BP 110/75
[2018-05-06] MEDS: TraMADol HCL 50 MG TABLET PO PRN ×2 (10:08→14:52)
[2018-05-06 16:38] VITALS: BP 108/63
[2018-05-06] MEDS: TOPIRAMATE 25 MG TABLET PO SCH (21:32)
[2018-05-06] MEDS: SENNA 187 MG TABLET PO SCH (21:32)
[2018-05-06] MEDS: -LIDODERM PATCH NOTE- MISC SCH (21:32)
[2018-05-06 23:32] VITALS: BP 104/64
[2018-05-06] MEDS: ACETAMINOPHEN 325 MG TABLET PO PRN (23:32)
[2018-05-07] MEDS: OMEPRAZOLE 20 MG CAPSULE PO SCH ×2 (06:08→16:38)
[2018-05-07 07:15] VITALS: BP 104/62
[2018-05-07] MEDS: ASPIRIN 81 MG CHEWABLE TABLET PO SCH (09:01)
[2018-05-07] MEDS: DOCUSATE SODIUM 250 MG CAPSULE PO SCH ×2 (09:01→20:56)
[2018-05-07] MEDS: AmLODIPine BESYLATE 2.5 MG TABLET PO SCH (09:01)
[2018-05-07] MEDS: LOSARTAN POTASSIUM 50 MG TABLET PO SCH (09:01)
[2018-05-07] MEDS: HYDROCHLOROTHIAZIDE 25 MG TABLET PO SCH (09:01)
[2018-05-07] MEDS: POTASSIUM CHLORIDE 10% 40 MEQ/30 ML LIQUID UDCUP PO SCH (09:01)
[2018-05-07] MEDS: CAMPHOR/MENTHOL 222 ML LOTION TP SCH ×3 (09:02→20:57)
[2018-05-07] MEDS: HYDROCORTISONE 1% 30 GM CREAM TP SCH ×3 (09:02→20:57)
[2018-05-07] MEDS: LIDOCAINE 5% TRANSDERMAL PATCH TD SCH (09:02)
[2018-05-07] MEDS: NORGESTREL PO SCH (09:02)
[2018-05-07] MEDS: ETHINYL ESTRADIOL PO SCH (09:02)
[2018-05-07] MEDS: ACETAMINOPHEN 325 MG TABLET PO PRN (14:22)
[2018-05-07 15:42] VITALS: BP 114/71
[2018-05-07] MEDS: TraMADol HCL 50 MG TABLET PO PRN (15:55)
[2018-05-07] MEDS: SENNA 187 MG TABLET PO SCH (20:56)
[2018-05-07] MEDS: TOPIRAMATE 25 MG TABLET PO SCH (20:56)
[2018-05-07] MEDS: -LIDODERM PATCH NOTE- MISC SCH (20:57)
[2018-05-08] VITALS: BP 104/69
[2018-05-08] MEDS ORDERED: DOCU250C91 PO (04:09)
[2018-05-08] MEDS ORDERED: LOSA50TA64 PO (04:09)
[2018-05-08] MEDS ORDERED: LIDO700A15 TD (04:09)
[2018-05-08] MEDS ORDERED: POTA10TA14 PO (04:09)
[2018-05-08] MEDS ORDERED: HYDR25TA PO (04:09)
[2018-05-08] MEDS ORDERED: TOPI25 PO (04:11)
[2018-05-08] MEDS ORDERED: TRAM50TA4 PO (04:11)
[2018-05-08] MEDS: OMEPRAZOLE 20 MG CAPSULE PO SCH (06:16)
[2018-05-08 08:03] VITALS: BP 120/68
[2018-05-08] MEDS: ETHINYL ESTRADIOL PO SCH (08:53)
[2018-05-08] MEDS: NORGESTREL PO SCH (08:53)
[2018-05-08] MEDS: ASPIRIN 81 MG CHEWABLE TABLET PO SCH (08:54)
[2018-05-08] MEDS: DOCUSATE SODIUM 250 MG CAPSULE PO SCH (08:54)
[2018-05-08] MEDS: AmLODIPine BESYLATE 2.5 MG TABLET PO SCH (08:55)
[2018-05-08] MEDS: LOSARTAN POTASSIUM 50 MG TABLET PO SCH (08:55)
[2018-05-08] MEDS: HYDROCHLOROTHIAZIDE 25 MG TABLET PO SCH (08:55)
[2018-05-08] MEDS: POTASSIUM CHLORIDE 10% 40 MEQ/30 ML LIQUID UDCUP PO SCH (08:56)
[2018-05-08] MEDS: LIDOCAINE 5% TRANSDERMAL PATCH TD SCH (08:57)
[2018-05-08] MEDS: HYDROCORTISONE 1% 30 GM CREAM TP SCH (09:00)
[2018-05-08] MEDS: CAMPHOR/MENTHOL 222 ML LOTION TP SCH (09:00)
== END 2018-05-08 11:15 | disposition home or self-care (01) | DRG 92 ==
LOC: 2WR 15:00
PROVIDERS: ADMIT Physical Medicine & Rehabilitation; ATTEND Physical Medicine & Rehabilitation
DX: R29.818 Other symptoms and signs involving the nervous system (principal); G81.91 Hemiplegia, unspecified affecting right dominant side; E78.5 Hyperlipidemia, unspecified; I10 Essential (primary) hypertension; K21.9 Gastro-esophageal reflux disease without esophagitis; Z81.1 Family history of alcohol abuse and dependence; Z82.49 Family history of ischemic heart disease and other diseases of the circulatory system; Z83.3 Family history of diabetes mellitus; Z98.84 Bariatric surgery status; Z88.0 Allergy status to penicillin; Z91.013 Allergy to seafood; E66.9 Obesity, unspecified; E87.6 Hypokalemia; F32.9 Major depressive disorder, single episode, unspecified; G43.909 Migraine, unspecified, not intractable, without status migrainosus; G93.9 Disorder of brain, unspecified; K59.00 Constipation, unspecified; Z79.82 Long term (current) use of aspirin; Z79.899 Other long term (current) drug therapy; Z86.73 Personal history of transient ischemic attack (TIA), and cerebral infarction without residual deficits
CPT/HCPCS: 70551; 74183; 76700; 82247; 82248; 83036; 87081; 93970; 97032; 97110; 97112; 97116; 97150; 97163; 97167; 97530; 97535; 99366; A9585; J1650; Q0162